=== PATIENT | male | born 1970 | race Caucasian/White ===

== ENCOUNTER 2016-05-16 03:08 | Emergency (ER) | payer OTHER ==
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
== END 2016-05-16 05:06 | disposition home or self-care (01) ==
LOC: CFTX 03:08
DX: S00.83XA Contusion of other part of head, initial encounter (principal); W22.8XXA Striking against or struck by other objects, initial encounter; Y99.0 Civilian activity done for income or pay; Y93.89 Activity, other specified
CPT/HCPCS: 70450; 70486; 72125; 99284